=== PATIENT | male | born 1995 | race Two or more races ===

== ENCOUNTER 2017-06-12 12:46 | Emergency (ER) | payer OTHER ==
[2017-06-12 13:04] VITALS: BP 132/75
--- NOTE | 2017-06-12 13:52 | RAD ---
Indication: RIGHT foot pain and swelling following rolling injury. Comparison: No relevant prior exams available on the [facility] [place] [facility] PACS for comparison. Technique: AP, lateral, and oblique views RIGHT foot. Report: Normal articular alignment. No cortical disruption or suspicious trabecular irregularity to suggest fracture. Tiny sharply circumscribed ganglion or osseous cyst noted at the diaphysis of the third proximal phalanx without concern. Unremarkable soft tissue contours. IMPRESSION: Negative for fracture or malalignment.
--- NOTE | 2017-06-12 14:10 | UC ---
Rob Hameed Jennifer, scribed for Kathy Buck MD on 06/12/17 at 1350 . Lower Extremity/Ankle HPI - HPI Summary HPI Summary: The patient is a 21 year old male who presents with right foot injury after a skateboarding incident last night. The patient reports he was skateboarding last night in a parking garage when he slammed onto a post and rolled his right ankle. He walked home last night, but this morning he wasnt able to bear weight or walk. He took two Ibuprofen, which relieved a little bit of pain. The patient denies knee pain, hip pain. No neck, back, or head injury. The patient additionally states that he has sprained the same foot previously. He was driven by his friend today. No edema, abraison. No other complaints. Patients medications reviewed this visit. - History of Current Complaint Chief Complaint: UCLowerExtremity Stated Complaint: FOOT INJURY Time Seen by Provider: 06/12/17 13:11 Hx Obtained From: Patient Onset/Duration: Sudden Onset, Lasting Days - one day, Still Present Severity Initially: Moderate Severity Currently: Severe Pain Intensity: 8 Pain Scale Used: 0-10 Numeric Aggravating Factor(s): Standing, Ambulation, Other - Sneezing, moving ankle Alleviating Factor(s): Nothing Able to Bear Weight: No Related History: Other - SKateboarding accident - Allergies/Home Medications Allergies/Adverse Reactions: Allergies Allergy/AdvReac Type Severity Reaction Status Date / Time No Known Allergies Allergy Verified 06/12/17 13:05 Home Medications: Home Medications Multivit with Calcium,Iron,Min 1 tab PO DAILY 06/12/17 [History Confirmed ] PMH/Surg Hx/FS Hx/Imm Hx Previously Healthy: Yes - NEG: HTN, DM - Surgical History Surgical History: None - Family History Known Family History: Positive: Diabetes - Paternal - Social History Occupation: Employed Full-time, Student Lives: With Family Alcohol Use: Weekly Substance Use Type: None Smoking Status (MU): Light Every Day Tobacco Smoker Review of Systems Constitutional: Negative - Fever Musculoskeletal: Myalgia - Right foot pain, right calf pain All Other Systems Reviewed And Are Negative: Yes Physical Exam Triage Information Reviewed: Yes Vital Signs: Initial Vital Signs Temp 99 F 06/12/17 12:59 Pulse 104 06/12/17 12:59 Resp 15 06/12/17 12:59 BP 132/75 06/12/17 12:59 Pulse Ox 100 06/12/17 12:59 Vital Signs Reviewed: Yes Eye Exam: Normal Eyes: Positive: Conjunctiva Clear ENT Exam: Normal ENT: Positive: Normal ENT inspection, Hearing grossly normal, Pharynx normal, TMs normal Dental Exam: Normal Neck exam: Normal Neck: Positive: Supple, Nontender, No Lymphadenopathy Respiratory Exam: Normal Respiratory: Positive: Chest non-tender, Lungs clear, Normal breath sounds, No respiratory distress, No accessory muscle use Cardiovascular Exam: Normal Cardiovascular: Positive: RRR, No Murmur, Other: - 2+ DP, PT CBT <2 sec Musculoskeletal: Positive: Other: - no pain c/t/l/s Full AROM + SLE + flex/ext knee, ankle + TTP right lateral foot, mid to base 5th MT No pain phalanges Neurological Exam: Normal Neurological: Positive: Alert, Other: - + gross sensation throughout foot Psychological Exam: Normal Skin Exam: Normal Procedures - Splinting Hand-Made Type: orthoglass Splint: posterior walking Pre-Proc Neuro Vasc Exam: normal Post-Proc Neuro Vasc Exam: normal, unchanged from pre-exam Diagnostics - Radiology Foot XR Xray Interpretation: No Acute Changes - Negative for fracture or malalignment. Dr. Buck has reviewed this report. Radiology Interpretation Completed By: Radiologist Re-Evaluation - Re-Evaluation First Eval Change: Improved - Pt states feels improved following splint tolerate well crutches Lower Extremity Course/Dx - Course Course Of Treatment: Pt presents with right foot pain s/p striking and rolling ankle last night on skateboard. no other injuries. skin intact. neg xray. posterior splint. motrin/apap. ice. elevate. sports medicine. work, class note - Differential Dx/Diagnosis Provider Diagnoses: foot sprain Discharge - Discharge Plan Condition: Stable Disposition: HOME Patient Education Materials: Foot Sprain (ED) Referrals: [facility] [Provider Group] Will Goyal MD [Primary Care Provider] - Additional Instructions: - wear rosemarie for comfort and support - use crutches until you can walk normally with a limp - apply ice (wrapped in a towel) 20 minutes 2-3 times a day for pain and swelling - elevate your leg to help with swelling and pain - contact the sports medicine clinic to schedule a follow-up appointment. Contact your doctor or return with questions or concerns The documentation as recorded by the Rob bah Jennifer accurately reflects the service I personally performed and the decisions made by me, Kathy Buck MD.
== END 2017-06-12 14:14 | disposition home or self-care (01) ==
LOC: UCEAST 12:46
DX: S93.601A Unspecified sprain of right foot, initial encounter (principal); X50.0XXA Overexertion from strenuous movement or load, initial encounter; Y93.51 Activity, roller skating (inline) and skateboarding; Y92.9 Unspecified place or not applicable; F17.200 Nicotine dependence, unspecified, uncomplicated
CPT/HCPCS: 99202; G0463

== ENCOUNTER 2018-07-03 11:40 | Day surgery (SDC) | payer OTHER ==
[~2018-07-03 11:40] MED LIST: Buffered Lidocaine 1% SYRIN* 1 ML/SYRINGE INTRADERM ONE; Lactated Ringers 1000 ML Bag* 1,000 ML IV SCH
[2018-07-03] MEDS ORDERED: fentaNYL* 50 MCG/ML 2 ML VIAL (100 MCG VIAL) ONE ×3 (11:50→18:31)
[2018-07-03] MEDS ORDERED: Midazolam* 1 MG/ML 2 ML VIAL (2 MG) ONE (11:51)
[2018-07-03] MEDS ORDERED: ceFAZolin 2 GM in NS PREMIX(*) 2 GM/100 ML BAG IVPB ONE (12:54)
[2018-07-03] MEDS ORDERED: Bupivacaine 0.5%* 50 ML VIAL ONE (14:12)
[2018-07-03] MEDS ORDERED: HYDROmorphone INJ1* 1 MG/ML SYRINGE IV PRN (16:26)
[2018-07-03] MEDS ORDERED: Acetaminophen TAB* 325 MG PO PRN (16:26)
[2018-07-03] MEDS ORDERED: Naloxone* 0.4 MG/ML 1 ML VIAL IV PRN (16:26)
[2018-07-03] MEDS ORDERED: fentaNYL* 50 MCG/ML 2 ML VIAL (100 MCG VIAL) IV PRN (16:26)
[2018-07-03] MEDS ORDERED: Ketorolac INJ* 30 MG/ML 1 ML VIAL ONE (17:15)
[2018-07-03] MEDS ORDERED: Propofol* 10 MG/ML 20 ML BTL ONE (17:15)
[2018-07-03] MEDS ORDERED: Ondansetron INJ* 2 MG/ML VIAL ONE (17:15)
[2018-07-03] MEDS ORDERED: Dexamethasone IV* 4 MG/ML 1 ML (4 MG) ONE (17:15)
--- NOTE | 2018-07-03 17:45 | OP ---
Operative Report - Blank - Operative Report Date of Operation: 07/03/18 Note: PATIENT: Anson Alex DATE OF : 1995 DATE OF SURGERY: 07/03/2018 SURGEON: Tony Marks MD FUEL CELL ASSEMBLER: KEVAN Saavedra , whos assistance was necessary for positioning, retraction, help with instrumentation, and closure. ANESTHESIOLOGIST: Dr. Lalita Rivas PREOPERATIVE DIAGNOSIS: Right trimalleolar ankle fracture POSTOPERATIVE DIAGNOSIS: Right trimalleolar ankle fracture with intraarticular loose bodies and cartilage injury OPERATION: 1. Right trimalleolar ankle fracture open reduction and internal fixation 2. Right ankle arthroscopy and excision of loose bodies 3. Right ankle arthroscopic extensive debridement ANESTHESIA: General + block IMPLANTS: Arthrex ankle fracture set plate and screws TOURNIQUET TIME: Less than 2 hours with a well-padded thigh tourniquet at 250mmHg SPECIMENS: none ESTIMATED BLOOD LOSS: minimal COMPLICATIONS: none STATUS: Stable from the operating room to the recovery room and then home. INDICATIONS FOR PROCEDURE: Anson sustained the above injury skateboarding. Both operative and non operative treatment alternatives were reviewed. Further, the nature and risks of surgery were reviewed in careful detail, in the office as well as the pre- operative holding area. Our discussions regarding the risks of surgery included , but were not limited to, infection, wound problems, nerve injury, neuroma, RSD , persistent symptoms, blood clot, nonunion, malunion, post-traumatic arthritis , hardware failure, failure of the surgery, and even the remote chance of catastrophic complication, including loss of limb. DESCRIPTION OF PROCEDURE: The patient was seen in the preoperative holding unit and informed written consent was obtained. The appropriate extremity was marked. The patient was then brought to the operating room and carefully positioned on the operating room table. Anesthesia was induced. All bony prominences were padded with great care. A well-padded thigh tourniquet was placed. A chlorhexidine based pre- scrub was performed followed by a chloraprep prep and drape in standard sterile fashion. A surgical safety pause was then conducted in which we confirmed the appropriate patient, extremity, planned procedure, availability of equipment, indication and administration of prophylactic antibiotics, and DVT prophylaxis in the form of a compression boot on the non-surgical extremity. I began with Esmarch exsanguination of the limb and inflated the tourniquet. I then utilized a laterally based incision overlying the distal fibula. I then exposed the distal fibula fracture. Fracture hematoma was removed. I gained a reduction utilizing a pointed reduction clamp. I placed an anatomic arthrex plate laterally and then confirmed the reduction and the position of the plate fluoroscopically. I placed screws to hold the plate to the bone. The provisional fixation was removed and then I again confirmed fluoroscopically the appropriate position of the plate and screw lengths. I tacked the incision closed. I then made an approximately 10cm incision over the medial malleolus. Subperiosteally, I dissected posteriorly to expose the apex of the posterior malleolus fracture that extended medially. I gained reduction with a pointed reduction clamp and held provisionally with K wires. I then placed a 4 hole 1/ 3 semitubular plate in a buttress fashion, and screws were placed. This held the posterior fracture well reduced. I then turned my attention to the medial malleolus fracture which was reduced with a pointed reduction clamp. There was quite a bit of comminution at the medial malleolus. I placed a 4.0 mm cannulated screw to fixate the medial malleolus fracture. I then examined the syndesmosis, which did have some increased motion, so I manually reduced syndesmosis and placed a 3.5 mm cortical screw across the syndesmosis. I then took final fluoroscopic images. At this point, we irrigated copiously and then closed both of the wounds in layers meticulously utilizing 3-0 Monocryl for the deep and subdermal layers and perfecto for the skin. I then turned my attention to the ankle arthroscopy. Standard anteromedial and anterolateral ankle arthroscopy portals were made. The joint had extensive hematoma which was removed with a shaver. There was injury to the cartilage at the medial talar dome, but no discrete osteochondral fracture or lesion. The injured and frayed cartilage was debrided with a shaver. There is extensive synovitis throughout the joint which was also debrided with the shaver. There were some small loose bodies in the joint which were removed with a grasper and shaver. The arthroscopy portals were then closed with 3-0 nylon. A sterile dressing was then applied followed by a splint with the ankle in a neutral position. The patient was then awakened from anesthesia and transferred to the recovery room in stable condition. There were no complications. All needle and sponge counts were correct at the end of the case. ATTESTATION: I attest I was present and scrubbed and performed the critical portions of the procedure myself. POSTOPERATIVE PLAN: The postop plan is for [id number] for an anticipated duration of 6 weeks. Follow-up will be in 2 weeks. At that time we will likely transition into a [id number] aircast boot.
[2018-07-03] MEDS ORDERED: Acetaminophen TAB* 325 MG ONE (18:31)
[2018-07-03 19:38] VITALS: BP 117/69
== END 2018-07-03 19:40 | disposition home or self-care (01) ==
LOC: OR 11:40
PROVIDERS: ATTEND Orthopaedic Surgery
DX: S82.851A Displaced trimalleolar fracture of right lower leg, initial encounter for closed fracture (principal); M24.071 Loose body in right ankle; Z87.891 Personal history of nicotine dependence; V00.131A Fall from skateboard, initial encounter; Y93.51 Activity, roller skating (inline) and skateboarding; Y92.9 Unspecified place or not applicable
CPT/HCPCS: 76000; A9270-GY; C1713; C1776; J0690; J1100; J1885; J2250; J2405; J2704; J3010; J3490

== ENCOUNTER 2019-07-12 18:53 | Emergency (ER) | payer OTHER ==
[2019-07-12] MEDS ORDERED: HYDROcodone/ACETAMIN 5-325 MG* 1 TAB PO ONE (19:14)
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
[2019-07-12] MEDS ORDERED: Tetan/Diph/Pertus SYR(Tdap)* 0.5 ML SYR(BOOSTRIX) use SYR contains LATEX IM ONE (19:17)
[2019-07-12] MEDS ORDERED: fentaNYL* 50 MCG/ML 2 ML VIAL (100 MCG VIAL) IV SLOW PU ONE (20:35)
[2019-07-12] MEDS ORDERED: oxyCODONE/Acetamin 5/325 MG* TAB PO ONE (21:35)
[2019-07-12 23:13] VITALS: BP 118/82
== END 2019-07-12 23:00 | disposition home or self-care (01) ==
LOC: ED 18:53
DX: S42.001A Fracture of unspecified part of right clavicle, initial encounter for closed fracture (principal); S01.01XA Laceration without foreign body of scalp, initial encounter; V00.131A Fall from skateboard, initial encounter; Y93.51 Activity, roller skating (inline) and skateboarding; Y92.9 Unspecified place or not applicable; F17.210 Nicotine dependence, cigarettes, uncomplicated
CPT/HCPCS: 12001; 70450; 72125; 90471; 90715; 96374; 99283; J3010

== ENCOUNTER → 2019-07-22 06:10 | Day surgery (SDC) | payer OTHER ==
[~2019-07-22 06:10] MED LIST changes: +Bacitracin OINTMENT TUBE ONE; +Buffered Lidocaine 1% SYRIN 1 ml INTRADERM ONE; -Buffered Lidocaine 1% SYRIN* 1 ML/SYRINGE INTRADERM ONE; +Bupivacaine 0.25% EPI 200,000 30 ML SDV ONE; +Dexamethasone IV 4 MG/ML VIAL 1 ml VIAL IV SLOW PU ONE; +Dexamethasone IV 4 MG/ML VIAL 1 ml VIAL ONE; +DiMENhydriNATE IV 50 mg/ml 1 ml VIAL IV PUSH PRN; +DiMENhydriNATE IV 50 mg/ml 1 ml VIAL ONE; +Famotidine IV 10 MG/ML 2 ml VIAL (20 mg) IV ONE; +Famotidine IV 10 MG/ML 2 ml VIAL (20 mg) ONE; +Glycopyrrolate IV 0.2 MG/ML 1 ML VIAL ONE; -Lactated Ringers 1000 ML Bag* 1,000 ML IV SCH; +Lactated Ringers 1000 ml BAG 1,000 ML IV SCH; +Lidocaine 2% PF 5 ML VIAL ONE; +Midazolam 2 mg/2 ml VIAL 1 mg/ml 2 ml VIAL (2 mg) ONE; +Naloxone 0.4 mg VIAL 0.4 mg/ml 1 ml VIAL IV PRN; +Ondansetron 4 mg VIAL 2 MG/ML 2 ml VIAL ONE; +Propofol 10 MG/ML 20 ML BTL ONE; +Succinylcholine 200 mg VIAL 20 mg/ml 10 ml VIAL (200 mg) ONE; +ceFAZolin 2 GM PREMIX in ORs 2 GM/50 ML BAG ONE; +ceFAZolin* 2 GM* ONE DOSE (Duplex) IVPB; +fentaNYL 100 mcg/2 ml 50 MCG/ML VIAL ONE; +oxyCODONE/Acetamin 5/325 mg TAB ONE
[2019-07-22] MEDS: fentaNYL 100 mcg/2 ml 50 MCG/ML VIAL IV PRN ×5 (10:03→11:06)
[2019-07-22 12:37] VITALS: BP 150/94
== END | disposition home or self-care (01) ==
LOC: OR 06:10
PROVIDERS: ATTEND Orthopaedic Surgery
DX: S42.021A Displaced fracture of shaft of right clavicle, initial encounter for closed fracture (principal); Z48.02 Encounter for removal of sutures; Z87.891 Personal history of nicotine dependence; V00.131A Fall from skateboard, initial encounter; Y93.51 Activity, roller skating (inline) and skateboarding; Y92.9 Unspecified place or not applicable